=== PATIENT | female | born 1965 | race Caucasian/White ===

== ENCOUNTER 2019-02-25 13:15 | Emergency (ER) | payer SELFPAY ==
[2019-02-25] MEDS ORDERED: ASPIRIN 81 MG TABLET, CHEWABLE PO ONE (13:58)
[2019-02-25 14:11] LABS: ABSOLUTE LYMPHOCYTES (AUTO) 1.1 10^3/uL (0.5-4.7); ABSOLUTE MONOCYTES (AUTO) 0.5 10^3/uL (0.1-1.4); ABSOLUTE NEUT (AUTO) 6.9 10^3/uL (1.7-8.2); BASOPHILS % (AUTO) 0.4 % (0-2); EOSINOPHILS % (AUTO) 0.2 % (0-6); HEMATOCRIT 41.9 % (36.0-47.0); HEMOGLOBIN 14.7 g/dL (12.0-15.5); LYMPHOCYTES % (AUTO) 12.4 % (13-45); MEAN CORPUSCULAR HGB CONC 35.1 g/dL (32.0-36.0); MEAN CORPUSCULAR VOLUME 88 fl (80-97); MONOCYTES % (AUTO) 5.5 % (3-13); PLATELET COUNT 293 10^3/uL (150-450); RED BLOOD COUNT 4.75 10^6/uL (3.72-5.28); RED CELL DISTRIBUTION WIDTH 14.5 % (11.5-14.0); SEGMENTED NEUTROPHILS % (AUTO) 81.5 % (42-78); TOTAL CELLS COUNTED % (AUTO) 100 %; WHITE BLOOD COUNT 8.5 10^3/uL (4.0-10.5)
[2019-02-25 14:15] LABS: PROTHROMBIN TIME 14.2 SEC (11.4-15.4)
[2019-02-25] MEDS ORDERED: ENOXAPARIN SODIUM INJ 30 MG/0.3 ML DISP.SYRIN IV ONE (14:15)
--- NOTE | 2019-02-25 14:22 | ER Document Report ---
ED Cardiac - General Chief Complaint: Chest Pain Stated Complaint: CHEST PAIN Time Seen by Provider: 02/25/19 14:09 Information source: Patient Notes: HPI: Patient is a 53-year-old female that comes from the primary care physician's office for 3 weeks of intermittent exertional substernal chest discomfort radiating to her left arm. She denies nausea, vomiting, diaphoresis, calf pain or leg swelling, recent trips or travel, or control pills. She denies a family history of clotting disorders. Patient states some shortness of breath with exertion only. She denies any lower extremity swelling. Patient had an abnormal EKG at the primary care physician's office and came to see us. She states her chest pain is currently "0.2/10". ROS: See HPI All other review of systems reviewed and otherwise negative Reviewed vital signs and nursing note as charted by RN. PHYSICAL EXAM: CONSTITUTIONAL: Alert and oriented and responds appropriately to questions. Well-appearing; well-nourished HEAD: Normocephalic; atraumatic CARD: Tachycardic and regular; no murmurs; symmetric distal pulses RESP: Normal chest excursion without splinting or tachypnea; breath sounds clear and equal bilaterally; no wheezes, no rhonchi, no rales ABD/GI: Normal bowel sounds; non-distended; soft, non-tender BACK: The back appears normal and is non-tender to palpation EXT: Normal ROM in all joints; non-tender to palpation; no edema SKIN: No acute lesions noted NEURO: CN 2-12 intact; 5/5 bilateral upper and lower extremity strength with sensation intact to light touch PSYCH: The patient's mood and manner are appropriate. Grooming and personal hygiene are appropriate. TRAVEL OUTSIDE OF THE [place] IN LAST 30 DAYS: No - Related Data Allergies/Adverse Reactions: No Known Allergies Allergy (Unverified 02/25/19 13:16) Past Medical History - Social History Smoking Status: Never Smoker Frequency of alcohol use: None Drug Abuse: None Family History: Reviewed & Not Pertinent Patient has suicidal ideation: No Patient has homicidal ideation: No - Past Medical History Cardiac Medical History: Reports: Hx Hypertension Renal/ Medical History: Denies: Hx Peritoneal Dialysis Physical Exam - Vital signs Vitals: Pulse Ox 96 02/25/19 13:58 Course - Re-evaluation Re-evalutation: Given the abnormal EKG, we stat paged cardiology. Possibility on initial EKG of an ST elevation in leads III, aVF, V3 and V4. However the patient had a wandering baseline. Pain score is less than 1. Heart rate is 122 on initial EKG. Repeat EKG does not show any obvious ST elevation greater than 1 mm in leads III and aVF. Poor R wave progression with persistent slightly elevated ST elevations in leads V3 and V4. Inverted T waves in V5 and V6. Given the possibility of an ST elevation myocardial infarction with the onset of symptomatology 3 weeks ago, I am unsure whether or not the patient is a good TPA candidate. We initiated all other STEMI criteria medications I have called and spoken and faxed the EKGs over to the current electronics recycler here, Dr. Ledezma. He has reviewed these EKGs and he is unsure whether or not this is a ST elevation myocardial infarction. However, he states the EKG is worrisome enough that he thinks the patient needs to be expedited to a catheterization facility. I have called the transfer center and faxed the EKGs to the electronics recycler. I have entertained the possibility of a pulmonary embolism. However the patient has no calf pain, leg swelling, shortness of breath only with exertion, with current chest discomfort of less than 1 out of 10. Patient is satting 96% on room air. I will discuss this with the electronics recycler. 02/25/19 14:19 Awaiting cardiology callback. 02/25/19 14:38 Still awaiting callback from cardiology. Repeat EKG has been ordered. 02/25/19 14:53 I am still waiting for cardiology call back. X-ray of the chest shows cardiomegaly. Possible pleural effusion. Blood pressure was 240/110. I have spoken to Dr. Sevilla once again. He does not want this patient to receive TPA. He does recommend a beta-marcie. He recommends metoprolol 5 mg doses. I am still awaiting for the repeat EKG. Initial troponin has come back very elevated. 02/25/19 14:56 EKG repeat shows heart of 110, sinus tachycardia, no obvious apparent change 02/25/19 15:08 I did speak directly to the electronics recycler at [facility]. He agrees no lytic therapy. He does believe that the patient needs to be expedited by air. I agree. He does not want any other medications given at this moment. 02/25/19 15:50 Patient is leaving now. Patient denies any pain. - Vital Signs Vital signs: Temp Pulse Resp BP Pulse Ox 98.3 F 121 H 31 H 197/138 H 93 02/25/19 14:24 02/25/19 14:24 02/25/19 15:30 02/25/19 15:30 02/25/19 15:30 - Laboratory Result Diagrams: 02/25/19 14:02 02/25/19 14:02 Laboratory results interpreted by me: 02/25/19 02/25/19 02/25/19 14:02 14:02 14:02 RDW 14.5 H Seg Neutrophils % 81.5 H Lymphocytes % 12.4 L Est GFR (Non-Af Amer) 52 L NT-Pro-B Natriuret Pep 4020 H Critical Care Note - Critical Care Note Total time excluding time spent on procedures (mins): 110 Discharge - Discharge Clinical Impression: Abnormal EKG, Cardiomegaly, Elevated troponin I level Chest pain Qualifiers: Chest pain type: intercostal pain Qualified Code(s): R07.82 - Intercostal pain Condition: Critical Disposition: [facility]
[2019-02-25] MEDS ORDERED: CLOPIDOGREL BISULFATE 300 MG TABLET PO ONE (14:30)
--- NOTE | 2019-02-25 14:34 | RADIOLOGY REPORT (SQ) ---
EXAM DESCRIPTION: CHEST SINGLE VIEW COMPLETED DATE/TIME: 02/25/2019 2:22 pm REASON FOR STUDY: cp COMPARISON: None. EXAM PARAMETERS: NUMBER OF VIEWS: One view. TECHNIQUE: Single frontal radiographic view of the chest acquired. RADIATION DOSE: NA LIMITATIONS: Leftward patient rotation FINDINGS: LUNGS AND PLEURA: No opacities, masses or pneumothorax. No pleural effusion. MEDIASTINUM AND HILAR STRUCTURES: No masses. Contour normal. HEART AND VASCULAR STRUCTURES: Enlarged cardiac silhouette. No evidence of failure. BONES: No acute findings. HARDWARE: None in the chest. OTHER: No other significant finding. IMPRESSION: Enlarged cardiac silhouette, possibly cardiomegaly versus pericardial effusion. No othe r evidence of acute cardiopulmonary process. TECHNICAL DOCUMENTATION: JOB ID: [id number] [email or web address]- All Rights Reserved Reading location - IP/workstation name: [email or web address]
[2019-02-25 14:37] LABS: ALANINE AMINOTRANSFERASE 20 U/L (9-52); ALBUMIN 4.4 g/dL (3.5-5.0); ALKALINE PHOSPHATASE 88 U/L (38-126); ANION GAP 11 (5-19); ASPARTATE AMINO TRANSFERASE 22 U/L (14-36); BILIRUBIN,DIRECT 0.2 mg/dL (0.0-0.4); BILIRUBIN,TOTAL 0.8 mg/dL (0.2-1.3); BLOOD UREA NITROGEN 13 mg/dL (7-20); CALCIUM 9.7 mg/dL (8.4-10.2); CARBON DIOXIDE 24 mmol/L (22-30); CHLORIDE 103 mmol/L (98-107); CREATINE KINASE 56 U/L (30-135); GLUCOSE 103 mg/dL (75-110); POTASSIUM 4.3 mmol/L (3.6-5.0); TOTAL PROTEIN 7.7 g/dL (6.3-8.2)
[2019-02-25 14:51] LABS: CREATINE KINASE MB 1.57 ng/mL (<4.55)
[2019-02-25] MEDS ORDERED: METOPROLOL TARTRATE PF/INJ 5 MG/5 ML SDV IV ONE ×3 (14:53→15:25)
[2019-02-25 14:54] LABS: TROPONIN I 0.494 ng/mL
[2019-02-25] MEDS ORDERED: ENOXAPARIN SODIUM INJ 100 MG/1 ML DISP.SYRIN SUBCUT ONE (15:25)
[2019-02-25 15:39] VITALS: BP 197/138
[2019-02-25] MEDS ORDERED: ENOXAPARIN SODIUM INJ 30 MG/0.3 ML DISP.SYRIN ONE (20:30)
[2019-02-25] MEDS ORDERED: CLOPIDOGREL BISULFATE 300 MG TABLET ONE (20:30)
--- NOTE | 2019-02-26 00:06 | EKG REPORT ---
SEVERITY:- ABNORMAL ECG - SINUS TACHYCARDIA VENTRICULAR PREMATURE COMPLEX NONSPECIFIC INTRAVENTRICULAR CONDUCTION DELAY INFERIOR INFARCT, AGE INDETERMINATE ANTERIOR INFARCT, ACUTE : Confirmed by: Willy Coleman 26-Feb-2019 00:05:40
--- NOTE | 2019-02-26 00:06 | EKG REPORT ---
SEVERITY:- ABNORMAL ECG - SINUS TACHYCARDIA PROBABLE LEFT ATRIAL ABNORMALITY NONSPECIFIC INTRAVENTRICULAR CONDUCTION DELAY PROBABLE INFERIOR INFARCT, AGE INDETERMINATE ANTERIOR INFARCT, ACUTE : Confirmed by: Willy Coleman 26-Feb-2019 00:05:49
--- NOTE | 2019-02-26 00:07 | EKG REPORT ---
SEVERITY:- ABNORMAL ECG - SINUS TACHYCARDIA PROBABLE LEFT ATRIAL ABNORMALITY NONSPECIFIC INTRAVENTRICULAR CONDUCTION DELAY INFERIOR INFARCT, ACUTE ANTEROLATERAL INFARCT, ACUTE : Confirmed by: Willy Coleman 26-Feb-2019 00:05:56
== END 2019-02-25 15:45 | disposition short-term general hospital (02) ==
LOC: ER 13:15
DX: R94.31 Abnormal electrocardiogram [ECG] [EKG] (principal); R07.82 Intercostal pain; I11.9 Hypertensive heart disease without heart failure; R79.89 Other specified abnormal findings of blood chemistry; R06.02 Shortness of breath; R00.0 Tachycardia, unspecified; Z83.2 Family history of diseases of the blood and blood-forming organs and certain disorders involving the immune mechanism
CPT/HCPCS: 93005; 99285; 96372; 96375; 36415; 82553; 82550; 85025; 85610; 80053; 84484; 83880; 71045; 93010; 96374; J3490 ×2; J1650 ×2